=== PATIENT | female | born 1945 | race Caucasian/White ===

== ENCOUNTER → 2017-09-23 13:03 | Outpatient (CLI) | payer MEDICARE, SELFPAY ==
--- NOTE | 2017-09-23 13:10 | CT_ITS ---
STUDY: CT CHEST WITH CONTRAST REASON FOR EXAM: Female, 71 years old. 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 RADIATION DOSAGE (If Supplied By Facility): CTDIvol = ( 18.54 ) mGy, DLP = ( 567.75 ) mGycm TECHNIQUE: Transaxial imaging was performed following intravenous administration of 100CC ml of Isovue 300 contrast material. Multiplanar coronal and sagittal images were reformatted. Individualized dose optimization techniques were used for this CT. COMPARISON: None. FINDINGS: The lungs well expanded. There is minimal atelectatic changes at the right lung base. There is no mass or infiltrate. There is no demonstrated pleural abnormality. The heart is borderline enlarged. There are calcifications of the coronary arteries. Pacer leads are seen within the right heart along the posterior aspect of the left ventricle.. Normal mediastinum. Normal hilar regions. Normal enhanced pulmonary arteries. There is atherosclerotic calcification of the aortic arch with tortuosity and elongation of the aortic arch and descending thoracic aorta. There are multi-level degenerative changes of the thoracic spine. There is a type I hiatal hernia. The remainder the visualized abdomen is grossly unremarkable. CT/Chest WITH Contrast IMPRESSION: 1. Minimal atelectatic changes at the right lung base. There is no acute infiltrate or mass. 2. Borderline cardiomegaly with evidence of cardiac pacemaker 3. Hiatal hernia. Electronically Signed: Soy Antonio DO at 16:50 EDT Tel [phone], Service support ,
[2017-09-23 13:31] LABS: CREATININE FINGERSTICK 1.2 mg/dL (0.55-1.02)
== END ==
PROVIDERS: Family Provider Nurse Practitioner Family; PCP Nurse Practitioner Family; Visit Provider Otolaryngology Otolaryngology/Facial Plastic Surgery
DX: J38.01 Paralysis of vocal cords and larynx, unilateral (principal)
CPT/HCPCS: 71260; Q9967

== ENCOUNTER → 2018-10-18 | Outpatient (CLI) | payer MEDICARE, SELFPAY ==
[2018-10-24 03:06] LABS: Alternaria tenuis <0.10 kU/L (Class 0); Ash, White <0.10 kU/L (Class 0); Aspergillus fumigatus <0.10 kU/L (Class 0); Bermuda Grass <0.10 kU/L (Class 0); Birch <0.10 kU/L (Class 0); Black Walnut <0.10 kU/L (Class 0); Cat Hair / Dander,Stand <0.10 kU/L (Class 0); Cedar, Mountain <0.10 kU/L (Class 0); Cladosporium herbarum <0.10 kU/L (Class 0); Cockroach, American <0.10 kU/L (Class 0); Cottonwood <0.10 kU/L (Class 0); D farinae Mite <0.10 kU/L (Class 0); D pteronyssinus <0.10 kU/L (Class 0); Dog Epithelia <0.10 kU/L (Class 0); Elm, American White <0.10 kU/L (Class 0); Immunoglobulin E < 2 IU/mL (6-495); Maple/Box Elder <0.10 kU/L (Class 0); Mulberry, White <0.10 kU/L (Class 0); Oak, White <0.10 kU/L (Class 0); Pecan <0.10 kU/L (Class 0); Penicillium Notatum <0.10 kU/L (Class 0); Pigweed, Rough <0.10 kU/L (Class 0); Ragweed, Short/Common <0.10 kU/L (Class 0); Russian Thistle <0.10 kU/L (Class 0); Sheep Sorrel <0.10 kU/L (Class 0); Sycamore, American <0.10 kU/L (Class 0); Timothy Grass <0.10 kU/L (Class 0)
[2018-10-24 12:10] LABS: Immunoglobulin E < 2 IU/mL (6-495); Mouse Urine <0.10 kU/L (Class 0)
== END | disposition home or self-care (01) ==
LOC: LAB 12:25
PROVIDERS: Family Provider Nurse Practitioner Family; PCP Nurse Practitioner Family; Referring Provider Otolaryngology Otolaryngology/Facial Plastic Surgery; Visit Provider Otolaryngology Otolaryngology/Facial Plastic Surgery
DX: T78.40XA Allergy, unspecified, initial encounter (principal)
CPT/HCPCS: 36415; 82785; 86003